=== PATIENT | female | born 1995 | race Caucasian/White ===

== ENCOUNTER 2022-10-10 09:55 | Emergency (ER) | payer BC ==
[~2022-10-10] VITALS: Ht 170.2 cm; Wt 101.8 kg
[2022-10-10 09:59] VITALS: TEMP 98.5
[2022-10-10 11:18] LABS: BASO % 0.6 % (0.0-2.0); EOS # 0.4 K/mm3 (0.0-0.7); EOS % 5.7 % (0.0-4.0); GRAN # 3.4 K/mm3 (1.4-6.5); GRAN % 52.6 % (42.2-75.2); HEMATOCRIT 43.2 % (37.0-47.0); HEMOGLOBIN 14.1 g/dl (12.5-16.0); MEAN CELL VOLUME 86 fl (80.0-100.0); MEAN CORPUSCULAR HEMOGLOBIN 28 pg (27-31); MEAN CORPUSCULAR HGB CONC 33 g/dl (33.0-37.0); MEAN PLATELET VOLUME 9.5 fl (7.4-10.4); MONO # 0.6 K/mm3 (0.1-0.6); MONO % 9.9 % (1.7-9.3); PLATELET COUNT 409 K/mm3 (130-400); RED BLOOD COUNT 5.04 M/mm3 (4.10-5.30); REDCELL DISTRIBUTION WIDTH-CV 12.8 % (11.5-14.5)
[2022-10-10 12:44] VITALS: BP 123/88; PULSE 88
== END 2022-10-10 12:45 | disposition home or self-care (01) ==
LOC: COL.ER 09:55
PROVIDERS: Physician Assistant
DX: O03.4 Incomplete spontaneous abortion without complication (principal); Z3A.08 8 weeks gestation of pregnancy

== ENCOUNTER 2023-08-14 13:30 | Emergency (ER) | payer SELFPAY ==
[~2023-08-14] VITALS: Ht 170.2 cm; Wt 97.7 kg
[2023-08-14 14:55] VITALS: BP 109/72; PULSE 62; TEMP 98.3
== END 2023-08-14 14:55 | disposition home or self-care (01) ==
LOC: COL.ER 13:30
DX: S01.511A Laceration without foreign body of lip, initial encounter (principal); W22.8XXA Striking against or struck by other objects, initial encounter; Y99.0 Civilian activity done for income or pay

== ENCOUNTER 2024-06-02 13:59 | Inpatient (IN) | payer BC ==
[~2024-06-02] VITALS: Ht 170.2 cm; Wt 123.6 kg
[2024-06-02] VITALS (18 sets, daily range): BP systolic 118–169; BP diastolic 58–98; PULSE 60–90; TEMP 97.8–98.3
--- NOTE | 2024-06-02 14:00 | NUR ---
1400PT AMBULATORY TO UNIT WITH SPOUSE FOR LABOR CHECK. PT CHANGED INTO GOWN. PT COMFORTABLE IN BED. 1410THIS RN AT BEDSIDE TO PLACE TOCO AND EFM. EFM TRACING CAT I. BASELINE 140. POSITIVE ACCELS. NO DECELS AT THIS TIME. MODERATE VARIABILITY. 1415PT BP 164/98. PT DENIES ANY BLOOD PRESSURE PROBLEMS WITH , OR PRIOR TO . PT REPORTS SHE THINK HER WATER BROKE. SHE WOKE UP THIS MORNING AND HER UNDERWEAR WERE SATURATED. PT STATES THIS WAS AT 0800. PT STATES IT WAS CLEAR FLUID. PT REPORTS FEELING CRAMPING EVERY 5 MINUTES OR SO. PT REPORTS POSITIVE MOVEMENT. PT DENIES VAGINAL BLEEDING. 1420SVE AT THIS TIME PER THIS RN. 1-/-3. AMNITRACE X2 POSITIVE WITH SVE. 1422THIS RN DISCUSSES POC WITH PT. PT VERBALIZES UNDERSTANDING. 1430DR FELIXPASTURE CALLED AT THIS TIME.
[2024-06-02] MEDS ORDERED: LR 1,000 ML IV SCH (14:45)
[2024-06-02] MEDS ORDERED: LR & Oxytocin 500 ML IV SCH (14:45)
[2024-06-02] MEDS ORDERED: PRENATAL TABLET PO (15:11)
[2024-06-02 16:02] LABS: BASO # 0.1 K/mm3 (0.0-0.2); BASO % 0.3 % (0.0-2.0); EOS # 0.2 K/mm3 (0.0-0.7); EOS % 1.2 % (0.0-4.0); GRAN # 17.3 K/mm3 (1.4-6.5); GRAN % 83.3 % (42.2-75.2); HEMOGLOBIN 11.2 g/dl (12.5-16.0); LYMPH # 1.9 K/mm3 (1.2-3.4); LYMPH % 9.1 % (20.0-51.0); MEAN CELL VOLUME 85 fl (80.0-100.0); MEAN CORPUSCULAR HEMOGLOBIN 28 pg (27-31); MEAN CORPUSCULAR HGB CONC 33 g/dl (33.0-37.0); MEAN PLATELET VOLUME 11.3 fl (7.4-10.4); MONO # 1.1 K/mm3 (0.1-0.6); MONO % 5.3 % (1.7-9.3); PLATELET COUNT 297 K/mm3 (130-400); RED BLOOD COUNT 3.94 M/mm3 (4.10-5.30); REDCELL DISTRIBUTION WIDTH-CV 13.2 % (11.5-14.5)
[2024-06-02 16:05] LABS: HEMATOCRIT 33.6 % (37.0-47.0)
[2024-06-02 16:20] LABS: ALBUMIN 2.3 g/dL (3.5-5.0); BILIRUBIN,TOTAL 0.2 mg/dL (0.2-1.2); CALCIUM 8.7 mg/dL (8.4-10.2); CREATININE, serum 0.73 mg/dL (0.57-1.11); TOTAL PROTEIN 6.2 g/dl (6.2-8.1)
[2024-06-02 17:27] LABS: URINE APPEARANCE CLEAR (CLEAR/HAZY); URINE BLOOD NEGATIVE (NEGATIVE); URINE COLOR YELLOW (YELLOW); URINE GLUCOSE NEGATIVE (NEGATIVE); URINE KETONE NEGATIVE (NEGATIVE); URINE NITRATE NEGATIVE (NEGATIVE); URINE PROTEIN(semi-quant) NEGATIVE (NEGATIVE); URINE UROBILINOGEN 0.2 E.U/dL (0.2-1.0)
--- NOTE | 2024-06-02 18:00 | NUR ---
1748DR FRANCISCO AT BEDSIDE. SVE /-2. DR FRANCISCO ATTEMPTED TO BREAK FOREBAG OF WATER, WITH NO RETURN OF FLUID. PT TOLERATED WELL. 1800PT ON BIRTHING BALL. DIFFICULT TO TRACE FHR. 1805VORB PER DR FRANCISCO FOR INTERMITTENT MONITORING. EFM TRACING CAT I. 1810PT UNPLUGGED FROM MONITOR.
[2024-06-02 18:03] LABS: COLLECTION METHOD CLEAN CATCH
--- NOTE | 2024-06-02 18:50 | NUR ---
PT BACK TO BED, SVE /-2, BAG OF WATER FELT. DISCUSSED STARTING PITOCIN NOW. PT STATES "YES, I AM FINE WITH THAT SO i CAN HAVE THIS BABY.
--- NOTE | 2024-06-02 19:30 | NUR ---
PT SITTING ON THE SIDE OF THE BED, NURSE ADJUSTING MONITOR FOR FHR.
--- NOTE | 2024-06-02 20:22 | NUR ---
dr biggs called in for update on pt. informed sve at 1899 was /-2, pitocin started at 1899. ctx's now 2 mins apart, fhr category 1. pt can have epidural when she wants it.
--- NOTE | 2024-06-02 20:49 | NUR ---
PT STANDING AT BEDSIDE. REQUESTS TO GO TO THE BR. PT AMB TO BR WITHOUT DIFFICULTY.
[2024-06-02] MEDS ORDERED: ROPivacaine PF 0.2% 200 ML IV ONE (21:55)
[2024-06-02] MEDS ORDERED: Lidocaine PF 2% (20 MG/ML) 5 ML VIAL ONE (21:56)
--- NOTE | 2024-06-02 22:27 | NUR ---
PT GETTING MORE COMFORTABLE AFTER EPIDURAL PLACED.
[2024-06-02] MEDS ORDERED: Naloxone 0.4 MG/ML VIAL IV PRN (22:30)
[2024-06-02] MEDS ORDERED: diphenhydrAMINE 50 MG/ML 1 ML VIAL IV PRN (22:30)
[2024-06-02] MEDS ORDERED: Ondansetron 4 MG/2 ML VIAL IV PRN (22:30)
[2024-06-02] MEDS ORDERED: ePHEDrine 50 MG/10 ML VIAL IV PRN (22:30)
[2024-06-02] MEDS ORDERED: diphenhydrAMINE 25 MG CAP PO PRN (22:30)
--- NOTE | 2024-06-02 23:20 | NUR ---
FHR LATE DECELS AND VARIABLES NOTED, PITOCIN OFF. CHANGED POSITION LEFT AND RIGHT. SROM LARGE GUSH OF FLUID SOAKED THE BED ON RUPTURE. 2320 SVE /-2. SEVERAL MORE LARGE GUSHES OF FLUID CAME OUT. CHUX AND TOWEL CHANGED. POSITIONED PT TO LEFT SIDE.
--- NOTE | 2024-06-02 23:45 | NUR ---
FHR 125 WITH ACCELS OCCASSIONAL VARIABLE. MONITORS ADJUSTED. CTX'S 5 MINS. PITOCIN RESTARTED AT 6 MU.
[2024-06-03] VITALS (34 sets, daily range): BP systolic 114–167; BP diastolic 60–88; PULSE 60–133; TEMP 97.8–98.8
--- NOTE | 2024-06-03 00:18 | NUR ---
FHR DECEL DOWN TO 80'S. LATE DECELS. CHANGED POSITION OF PT TO RIGHT SIDE, THEN LEFT LATERAL, SVE 8/100/-1. PITOCIN OFF. O2 ON 10L, VIA MASK
--- NOTE | 2024-06-03 01:11 | NUR ---
DR FRANCISCO HERE ON THE UNIT. GIVEN UPDATE ON FHR DECELS, PITOCIN OFF THEN ON AGAIN. POSITION CHANGES. NO NEW ORDERS. WILL CONTINUE TO MONITOR.
--- NOTE | 2024-06-03 01:42 | NUR ---
DR FRANCISCO HERE, SVE /-1, TOP OF CERVIX IS SWOLLEN A LITTLE. FSE PLACED DUE TO HAVING A HARD TIME TRACING FHR AND NOT ABLE TO MORE PT FREQUENTLY. PT TOLERATED FSE PLACEMENT WELL. PITOCIN OFF. FHR DECEL DURING VAG EXAM.
--- NOTE | 2024-06-03 05:58 | NUR ---
SVE ANT LIP/100/+1, CAPUT NOTED, HAD PT DO A TEST PUSH. PT PUSHING WELL BUT ANT LIP IS STILL THERE. DR MATIASURE GIVEN AN UPDATE. PT SITTING IN HIGH FOWLERS POSITON. WILL RECHECK CERVIX IN AN HOUR AND CALL DR LEMA.
--- NOTE | 2024-06-03 07:09 | NUR ---
CALLED DR LEMA TO UPDATE ABOUT PT HERE, SVE COMPLETE, RUPTURED SINCE 0800 ON 06/02/24. PT DID HAVE A PRACTICE PUSH AND HAD A 70 SEC[address] DECEL AFTER[address]ARDS. DR LEMA ORDERED AMP 2G AND GENT 120 FOR PROLONGED RUPTURE. AND HE WILL BE HERE IN 15-20 MINUTES.
[2024-06-03] MEDS ORDERED: Gentamicin/Sodium Chloride 100 ML IV ONE (07:15)
--- NOTE | 2024-06-03 09:12 | NUR ---
CALLED DR LEMA TO UPDATE ON MATERNAL PUSHING, WE ARE GETTING CLOSE TO DELIVERY, WILL PROBABLY NEED HIM IN 10 TO [address]. [address]SO [address] LEMA KNOW THAT FHT HAVE HAD VARIABLES WITH EACH CTX, BUT RECOVER QUICKLY TO BASELINE. DR LEMA SAID OKAY, HE WILL HEAD OUR WAY SOON.
--- NOTE | 2024-06-03 09:18 | NUR ---
CALLED DR LEMA BACK TO LET HIM KNOW WE WILL NEED HIM SOON. HE RESPONDED THAT HE WAS ON HIS WAY.
--- NOTE | 2024-06-03 09:26 | NUR ---
0740 DR LEMA AT BEDSIDE, SVE COMPLETE/100/+1. PER DR LEMA PT MAY START PUSHING. 0755 SAUCEDO OUT 150ML OF URINE. 0759 PT STARTED PUSHING. 0830 DR LEMA AT BEDSIDE EVALUATING MATERNAL PUSHING EFFORTS. 09 DR LEMA AT BEDSIDE PREPARING FOR DELIVERY. 09 SPONTANEOUS VAGINAL DELIVERY BY DR LEMA OF A HEALTHY BABY BOY. NUCHAL X1. INFANT WAS LAID ON MOTHERS CHEST AND STIMULATED BY NURSERY NURSE LIANNE WHO RESUMED CARE OF THE INFANT. DR LEMA THEN CLAMPED THE CORD AND FOB CUT THE CORD. 0931 SPONATNEOUS VAGINAL DELIVERY OF THE PLACENTA. FUNDUS FIRM. MINMAL BLEEDING. DR LEMA REPAIRED A TRICE-CLITORAL TEAR AND A SUPERFICAL PERINEAL TEAR. QBL PER DR LEMA 400. PT WAS REPOSITIONED. VS WNL. INFANT AND MOTHER SKIN TO SKIN. APGARS 9,9,9.
[2024-06-03] MEDS ORDERED: Magnes Hydrox (MOM) 80 MG/ML 30 ML CUP PO PRN (10:00)
[2024-06-03] MEDS ORDERED: Phenylephrine/Mineral Oil/Petrolatum 57 GM TUBE RC PRN (10:00)
[2024-06-03] MEDS ORDERED: Ibuprofen 600 MG TAB PO SCH (10:00)
[2024-06-03] MEDS ORDERED: oxyCODONE 5 MG TAB PO PRN (10:00)
[2024-06-03] MEDS ORDERED: Acetaminophen 500 MG TAB PO SCH (10:00)
[2024-06-03] MEDS ORDERED: Naloxone 0.4 MG/ML VIAL IV PRN (10:00)
[2024-06-03] MEDS ORDERED: Loratadine 10 MG TAB PO PRN (10:00)
[2024-06-03] MEDS ORDERED: Measles/Mumps/Rubella Virus Vaccine Live w Diluent 0.5 ML VIAL SQ SCH (10:00)
[2024-06-03] MEDS ORDERED: Mag/Al Hydrox/Simeth Susp 30 ML CUP PO PRN (10:00)
[2024-06-03] MEDS ORDERED: Witch Hazel 50% Pads Bulk TUB TP PRN (10:00)
--- NOTE | 2024-06-03 11:30 | NUR ---
PT MOVED TO ROOM. PT EDUCATION DONE ON 24 HOUR LABS, GOING HOME, WHEN THE IV CAN COME OUT, WHEN TO SHOWER, PT ASKED TO CALL BEFORE GOING TO THE BATHROOM ON HER OWN SINCE HER LEFT LEG WAS STILL PARTLY NUMB. PT AGREES.
[2024-06-03] MEDS ORDERED: Sennosides/Docusate 8.6-50 MG TAB PO SCH (17:00)
[2024-06-03] MEDS ORDERED: traZODone 50 MG TAB PO PRN (21:00)
[2024-06-04 01:10] VITALS: BP 139/83; PULSE 94; TEMP 97.6
[2024-06-04 07:53] VITALS: BP 145/82; PULSE 80; TEMP 97.8
--- NOTE | 2024-06-04 07:59 | NUR ---
RN DISCUSSES POC WITH PT AND SIGNIFICANT OTHER AT THIS TIME. PT VERBALIZES UNDERSTANDING AND HAS NO QUESTIONS AT THIS TIME.
[2024-06-04] MEDS ORDERED: IBU600 MG PO (10:54)
--- NOTE | 2024-06-04 12:37 | NUR ---
1230 Pt given both written and verbal discharge instructions. Pt encouraged to keep all scheduled follow up appointments and educated on signs/symptoms that would require pt to be seen by a medical professional. Pt verbalizes understanding and has no questions at this time.
--- NOTE | 2024-06-04 12:38 | NUR ---
RN BEDSIDE HELPING PT TO BREASTFEED
== END 2024-06-04 13:20 | disposition home or self-care (01) | DRG 768 ==
LOC: LDRO 13:59 → LDR 14:00 → OB 06-03 11:30
PROVIDERS: Student in an Organized Health Care Education/Training Program; ADMIT Obstetrics & Gynecology
PROC: 10E0XZZ Delivery of Products of Conception, External Approach (ICD-10-PCS; principal; 2024-06-03)
PROC: 0UQJXZZ Repair Clitoris, External Approach (ICD-10-PCS; 2024-06-03)
PROC: 0HQ9XZZ Repair Perineum Skin, External Approach (ICD-10-PCS; 2024-06-03)
DX: O99.344 Other mental disorders complicating childbirth (principal); Z37.0 Single live birth; F84.0 Autistic disorder; O69.81X0 Labor and delivery complicated by cord around neck, without compression, not applicable or unspecified; O76 Abnormality in fetal heart rate and rhythm complicating labor and delivery; O71.89 Other specified obstetric trauma; O70.9 Perineal laceration during delivery, unspecified; O99.214 Obesity complicating childbirth; F41.9 Anxiety disorder, unspecified; Z3A.39 39 weeks gestation of pregnancy
CPT/HCPCS: J0290; J1200; J1580; J2590; J2795; J7120